=== PATIENT | male | born 1960 | race Caucasian/White ===

== ENCOUNTER → 2022-03-03 09:16 | Outpatient (CLI) | payer OTHER, SELFPAY ==
[2022-03-03 11:24] LABS: COVID19 -Nasal RAPID Negative (Negative)
== END ==
PROVIDERS: PCP Family Medicine; Visit Provider Surgery
DX: Z20.822 Contact with and (suspected) exposure to COVID-19 (principal); Z01.812 Encounter for preprocedural laboratory examination
CPT/HCPCS: 87635; C9803

== ENCOUNTER 2022-03-04 15:20 | Day surgery (SDC) | payer OTHER, SELFPAY ==
[2022-02-24 08:32] VITALS: BMI 25.8
--- NOTE | 2022-03-04 | PATH_ITS ---
[facility] Accession Number: [id number] . 01 Material submitted: . PART A: elbow - LEFT OLECRANON MASS PART B: soft tissue - LEFT AP FOSSA MASS PART C: arm - LEFT ARM MASS . 01 Diagnosis: A. Left Olecranon, Excision: Angiolipoma. . B. Left AP Fossa, Excision: Mature adipose tissue, consistent with lipoma. . C. Left Arm, Excision: Angiolipoma. MRV 03/06/2022 0841 Local . 01 Electronically signed: . Jared Yoon MD, Dermatopathologist NPI- [id number] . 01 Gross description: . A. Received in formalin labeled with the patient's name and left olecranon mass consists of a yellow lobulated fragment of soft tissue measuring 3.9 x 2.5 x 1.3 cm. The external surface is inked blue. Serial sectioning reveals a yellow homogenous unremarkable cut surface. Interventional Radiologist sections are submitted in A1-A2. B. Received in formalin labeled with the patient's name and left AP fossa mass consists of a yellow smooth fragment of soft tissue measuring 1.6 x 1.2 x 0.7 cm. The external surface is inked green and sectioning reveals a yellow homogenous unremarkable cut surface. The specimen is submitted entirely in cassettes B1-B2. C. Received in formalin labeled with the patient's name and left arm mass consists of a smooth yellow soft tissue fragment measuring 2.5 x 1.2 x 0.7 cm. The external surface is inked black. Sectioning reveals a yellow homogenous unremarkable cut surface. The specimen is submitted entirely in cassettes C1-C2. ([id number]) /MRV 03/05/2022 1353 Local . 01 Pathologist provided ICD-10: D17.9 . 01 CPT . 657289, 459118, 727193 Specimen Comment: A courtesy copy of this report has been sent to [phone] Performed at: 01 [facility] [address] [place] [address], [place], [place] [id number] MD Fuad Landaverde MD Phone: [phone]
[2022-03-04 15:34] VITALS: BMI 25.8
[2022-03-04 15:40] VITALS: BP 103/71; PULSE 60; RESP 16; TEMP 36.6; O2SAT 98
--- NOTE | 2022-03-04 16:50 | PM.PREOP ---
Pre-operative Note COVID-19 COVID-19 status: Negative Result date/Date tested (Pos, Neg/Pending): 03/03/22 Interval Note History & Physical reviewed/Exam performed by Physician: Yes Changes to H&P: No ASA Class (for procedural sedation): I
--- NOTE | 2022-03-04 17:24 | SUR.OPER ---
Supine on padded OR bed, head on pillow, arms secured on padded arm boards at <90 degrees abduction, legs uncrossed, safety belt at thigh, tape over blanket over lower legs.
[2022-03-04] MEDS: LIDOCAINE 1% W/EPI 20 ML INJ (17:28)
[2022-03-04] MEDS: BUPIVACAINE 0.5% (PF) VIAL 30 ML INJ (17:29)
--- NOTE | 2022-03-04 17:56 | PM.OP.1 ---
Operative Date/Time/Diagnoses Date of procedure: 03/04/22 Time of procedure: 17:56 Pre-op diagnosis: Left arm subcutaneous soft tissue masses Post-op diagnosis: same Procedure & Clinicians Procedure: Excisional biopsy of left arm subcutaneous soft tissue masses Same procedure as scheduled: Yes Surgeon: Darrius Aranda Anesthesia Type: Local Operative Notes Procedure in detail: The patient was brought to the operating room and placed on the table in the supine position with the left arm on an armboard. Antibiotics were indicated. The left arm was prepped and draped in the usual fashion and a time-out was performed. We started with the largest mass which was just medial to the olecranon process. We injected lidocaine with epinephrine over the mass and created a 5 cm incision. We divided the dermis and a thin layer of subcutaneous adipose tissue in encounter the mass which appeared to be a lipoma. It was well defined and was easily extricated without much dissection. The mass was entirely in the subcutaneous space above the fascia. We then injected some Marcaine into the wound and closed the wound in layers using multiple interrupted 3-0 Vicryl dermal sutures followed by a running 4 Monocryl subcuticular closure. Next, we moved on to the smaller mass in the AC fossa. This was removed through a 3 cm incision and was also in the superficial plane. This mass also was easily extricated without dissection into the surrounding tissues. The mass was about 2.5 cm. The skin incision was closed in a similar manner. Finally, we moved onto the mass over the distal biceps muscle. This was also extricated through a 3 cm incision and was easily removed without dissection and was about 0.5 cm. This incision was closed in the same manner. Steri-Strips were applied over all the incisions followed by Telfa and a Coban wrap. EBL: 5 mL Post-operative Condition: stable Disposition: PACU
[2022-03-04 18:07] VITALS: BP 108/72; PULSE 57; RESP 16; TEMP 36.6; O2SAT 98
== END 2022-03-04 18:12 | disposition home or self-care (01) ==
PROVIDERS: PCP Family Medicine; Referring Provider Surgery; Visit Provider Surgery
PROC: (CPT 24071; principal; 2022-03-04 16:00)
DX: D17.22 Benign lipomatous neoplasm of skin and subcutaneous tissue of left arm (principal); E78.00 Pure hypercholesterolemia, unspecified; Z86.718 Personal history of other venous thrombosis and embolism; Z86.711 Personal history of pulmonary embolism; Z85.820 Personal history of malignant melanoma of skin; Z85.828 Personal history of other malignant neoplasm of skin
CPT/HCPCS: 24071; 24075 ×2

== ENCOUNTER → 2023-07-29 11:03 | Outpatient (CLI) | payer OTHER, SELFPAY | PROVIDERS: PCP Family Medicine; Visit Provider Physician Assistant | DX: R10.31 Right lower quadrant pain (principal) | CPT/HCPCS: 87086 ==

== ENCOUNTER → 2023-07-29 11:38 | Outpatient (CLI) | payer OTHER, SELFPAY ==
--- NOTE | 2023-07-29 11:42 | DI.RAD.S_ITS ---
PROCEDURE: XR KUB INDICATIONS: sharp RLQ pain, hematuria TECHNIQUE: One view of the abdomen acquired. COMPARISON: None. FINDINGS: Surgical changes and devices: None. Bowel: Bowel gas pattern is normal. Soft tissues: 7 mm calcification projecting lateral to the L3 vertebral body. Bones: No suspicious bony lesions. IMPRESSION: 7 mm calcification projecting lateral to the L3 vertebral body, which could indicate a stone within the right ureter. Consider confirmation with CT. Dictated by: Edison Pham M.D. on 07/29/2023 at 12:37 Approved by: Edison Pham M.D. on 07/29/2023 at 12:37
[2023-07-29 12:58] LABS: Add Manual Diff / Slide Review NO; Basophils Absolute Auto 0 /uL (0-100); Basophils Percent Auto 0.4 % (0-2); Eosinophils Absolute Auto 0 /uL (0-450); Eosinophils Percent Auto 0.5 % (2-4); Hematocrit 46.6 % (41-53); Hemoglobin 15.8 g/dL (13.5-17.5); Lymphocytes Absolute Auto 1700 /uL (1100-4500); Mean Corpuscular Hemoglobin 29.8 PG (26-34); Mean Corpuscular Volume 87.8 fL (80-100); Monocytes Absolute Auto 800 /uL (0-900); Monocytes Percent Auto 7.8 % (3-14); Neutrophils Absolute Auto 7400 /uL (1500-7000); Neutrophils Percent Auto 74.3 % (50-75); Platelet Count 225 X10^3/uL (150-400); Red Blood Cell Count 5.31 X10^6/uL (4.5-5.9); Red Cell Distribution Width 14.1 % (11.6-14.8)
[2023-07-29 13:53] LABS: Alanine Aminotransferase 21 IU/L (<50); Albumin 4.2 g/dL (3.5-5.0); Albumin Globulin Ratio 1.2 (1.0-2.8); Alkaline Phosphatase 88 U/L (38-126); Aspartate Aminotransferase 51 IU/L (17-59); BUN Creatinine Ratio 13.1 (6-22); Bilirubin Total 1.2 mg/dL (0.2-1.3); Blood Urea Nitrogen 25 mg/dL (9-20); Calcium 9.5 mg/dL (8.4-10.2); Carbon Dioxide 25 mmol/L (22-32); Chloride 103 mmol/L (98-107); Estimated Glomerular Filt Rate 39 mL/min (>60); Globulin 3.6 g/dL (1.7-4.1); Glucose 92 mg/dL (80-110); HEMOLYSIS 17 (0-50); Lipase 49 U/L (23-300); Potassium 4.3 mmol/L (3.4-5.1); Sodium 136 mmol/L (137-145); Total Protein 7.8 g/dL (6.3-8.2)
== END ==
LOC: RAD 11:41
PROVIDERS: PCP Family Medicine; Referring Provider Physician Assistant; Visit Provider Physician Assistant
DX: R10.31 Right lower quadrant pain (principal)
CPT/HCPCS: 36415; 74018; 80053; 83690; 85025; 87086

== ENCOUNTER → 2023-07-30 07:32 | Outpatient (CLI) | payer OTHER, SELFPAY ==
--- NOTE | 2023-07-30 08:54 | DI.CT.S_ITS ---
PROCEDURE: CT ABDOMEN PELVIS W CON INDICATIONS: RLQ Abdominal pain TECHNIQUE: After the administration of intravenous contrast, axial sections acquired from the lung bases to the pubic symphysis. Coronal and sagittal reformats were performed. For radiation dose reduction, the following was used: automated exposure control, adjustment of mA and/or kV according to patient size. COMPARISON: None. FINDINGS: Image quality: Diagnostic. Lower Chest: No significant findings. ABDOMEN: Liver: No solid mass. Gallbladder: No radiopaque gallstones or wall thickening. Biliary ducts: No biliary dilation. Pancreas: No ductal dilation. Spleen: Size is within normal limits. Round, hyperattenuating lesion measuring 8 millimeters, presumably a flash filling hemangioma. Adrenal Glands: No adrenal nodules. Kidneys and Ureters: 7 millimeter obstructing stone in the proximal right ureter (1072 Hounsfield unit). This results in moderate to severe hydronephrosis. Additional punctate nonobstructing bilateral nephrolithiasis. Stomach and Bowel: Normal colonic caliber, without significant wall thickening. Colonic diverticulosis without evidence of diverticulitis. Peritoneum: No abnormal intraperitoneal fluid. No free air. Ventral Wall: No hernia. Abdominal Nodes: No retroperitoneal or mesenteric adenopathy by size criteria. Vessels: Aorta and inferior vena cava are normal in size. PELVIS: Pelvic Organs: Prostatomegaly. Bladder: Unremarkable. Pelvic Nodes: No enlarged lymph nodes. Miscellaneous: No inguinal hernias are seen. Bones: No aggressive osseous abnormality. IMPRESSION: Obstructing 7 millimeter stone in the proximal right ureter, resulting in moderate to severe hydronephrosis. Additional small burden of bilateral nonobstructing nephrolithiasis. Dictated by: Edison Pham M.D. on 07/30/2023 at 9:50 Approved by: Edison Pham M.D. on 07/30/2023 at 9:56
== END ==
PROVIDERS: PCP Family Medicine; Referring Provider Physician Assistant; Visit Provider Physician Assistant
DX: N13.2 Hydronephrosis with renal and ureteral calculous obstruction (principal); R10.31 Right lower quadrant pain; K57.90 Diverticulosis of intestine, part unspecified, without perforation or abscess without bleeding; N40.0 Benign prostatic hyperplasia without lower urinary tract symptoms
CPT/HCPCS: 74177; Q9967

== ENCOUNTER 2023-07-31 12:41 | Day surgery (SDC) | payer OTHER, SELFPAY ==
--- NOTE | 2023-07-31 | DI.RAD.S_ITS ---
PROCEDURE: XR ABDOMEN 1V INDICATIONS: STENT PLACEMENT TECHNIQUE: 1 intra-operative images acquired by the Urology service. COMPARISON: None. FINDINGS: A single operative image demonstrates that a right ureteral stent has been placed. IMPRESSION: A single operative image demonstrates placement of a right ureteral stent. Dictated by: Pete Hinojosa M.D. on 07/31/2023 at 18:06 Approved by: Pete Hinojosa M.D. on 07/31/2023 at 18:07
[2023-07-31 13:27] VITALS: BP 113/73; PULSE 64; RESP 16; TEMP 36.2; O2SAT 98; BMI 25.8
[2023-07-31] MEDS: LACTATED RINGERS 1,000 ML 21 ML IV (13:27)
--- NOTE | 2023-07-31 13:28 | PM.PREOP ---
Pre-operative Note COVID-19 COVID-19 status: Not tested Interval Note History & Physical reviewed/Exam performed by Physician: Yes Changes to H&P: No
[2023-07-31] MEDS: CEFAZOLIN 2 GM/100 ML PREMIX 100 ML IV (15:05)
--- NOTE | 2023-07-31 15:16 | SUR.OPER ---
Lithotomy on padded OR bed, head on pillow, arms secured on padded arm boards at <90 degrees abduction. Legs secured in padded yellow fins stirrups.
--- NOTE | 2023-07-31 15:25 | P.OP_ITS ---
Procedure & Clinicians Procedure: Cystoscopy with right ureteral stent placement Same procedure as scheduled: Yes Indications: This 63-year-old male presented with complaints of right abdominal pain. The workup was found to have a 7 mm proximal right ureteral calculus. He has colic and hydronephrosis as well as increased creatinine presents this time for cystoscopy with stent placement. Surgeon: Vasile Hopkins Click Yes if Unassisted: Yes Anesthesia Type: General Operative Notes Findings: Findings: Urethral meatus and urethra normal along their length. Sphincter as well coapted prostate shows moderate obstructive character with a somewhat high bladder neck right and left ureteral orifices in normal position with clear efflux from the left. No efflux as observed prior to the stent being placed on the right. Mucosa of the bladder is normal. The stent is placed in good position the stone is noted to be in the proximal right ureter. It did appear to perhaps push back into the renal pelvis with stent placement there was persistent contrast in the colon. No other abnormalities were noted again it was a 7 Romanian by multi length stent with no string. Closure Type: not applicable Specimen(s): none sent Prosthetic devices, grafts, tissues, transplants, or devices: Seven Romanian by multi length stent right ureteral collecting system no string. Estimated Blood Loss (mL): 0 Blood products transfused: none Procedure in detail: Procedure in detail: After informed consent was obtained, the patient was identified brought to the operating room placed in a supine position where anesthesia was induced and maintained. Ensuring an adequate level of anesthesia the patient was transitioned to the lithotomy position where he was prepped, draped, prepared for Transurethral procedure. After ensuring an adequate level of anesthesia, time-out, prepping, draping and antibiotics a 22 Romanian cystoscope was passed through the urethra prostate and into the bladder under direct vision cystoscopy was performed. The right ureteral orifice was identified and a hybrid 0.38 guidewire was passed up and into the collecting system under fluoroscopic visualization. With the wire in good position of the stent was passed in a coaxial fashion along the wire position in the renal pelvis under fluoroscopic visualization of the bladder under direct vision the nylon harness was removed the wire was removed and the stent was left in good position. The bladder was drained the scope was removed and the patient was awakened having tolerated the procedure well to be transferred to the postanesthesia care unit for recovery. From there once recovered he will be discharged to home to follow up my office in the next 10 days and to be scheduled in the next several weeks for definitive treatment of his stone likely with extracorporeal shockwave lithotripsy. There were no complications Complications: none Post-operative Condition: stable Disposition: PACU Plan for aftercare: Discharged to home after recovery follow-up my office in approximately 10 days
[2023-07-31 15:33] VITALS: BP 119/89; PULSE 68; RESP 16; TEMP 36.1; O2SAT 98
[2023-07-31 15:37] VITALS: BP 126/87; PULSE 63; RESP 16; O2SAT 97
[2023-07-31 15:42] VITALS: BP 118/66; PULSE 57; RESP 16; O2SAT 98
[2023-07-31] MEDS: ONDANSETRON 4 MG/2 ML INJ IV (15:46)
[2023-07-31 15:52] VITALS: BP 118/84; PULSE 56; RESP 16; O2SAT 100
[2023-07-31 16:02] VITALS: BP 127/76; PULSE 65; RESP 16; O2SAT 98
== END 2023-07-31 16:32 | disposition home or self-care (01) ==
PROVIDERS: PCP Family Medicine; Referring Provider Urology; Visit Provider Urology
PROC: (CPT 52332; principal; 2023-07-31 14:00)
DX: N13.2 Hydronephrosis with renal and ureteral calculous obstruction (principal); N17.9 Acute kidney failure, unspecified; R10.31 Right lower quadrant pain; Z86.718 Personal history of other venous thrombosis and embolism; Z86.711 Personal history of pulmonary embolism; Z85.820 Personal history of malignant melanoma of skin; Z85.828 Personal history of other malignant neoplasm of skin
CPT/HCPCS: 52332; 74018; 76000; 96372; J0690; J1885; J2250; J2405; J2704; J3010

== ENCOUNTER → 2023-08-17 14:15 | Outpatient (CLI) | payer OTHER, SELFPAY | PROVIDERS: PCP Family Medicine; Visit Provider Urology | DX: N20.0 Calculus of kidney (principal) | CPT/HCPCS: 87086 ==

== ENCOUNTER 2023-08-18 10:20 | Day surgery (SDC) | payer OTHER, SELFPAY ==
[2023-08-17 15:50] VITALS: BMI 25.8
[2023-08-18] VITALS (7 sets, daily range): BP systolic 113–132; BP diastolic 67–82; PULSE 57–60; RESP 10–23; TEMP 36.1–36.6; O2SAT 96–99; BMI 25.8
[2023-08-18] MEDS: LACTATED RINGERS 1,000 ML 21 ML IV (11:11)
--- NOTE | 2023-08-18 11:12 | PM.PREOP ---
Pre-operative Note COVID-19 COVID-19 status: Not tested Interval Note History & Physical reviewed/Exam performed by Physician: Yes Changes to H&P: No
[2023-08-18] MEDS: CEFAZOLIN 2 GM/100 ML PREMIX 100 ML IV (11:36)
--- NOTE | 2023-08-18 11:42 | SUR.OPER ---
Lithotomy on padded OR bed, head on pillow, arms at patients side and padded . Legs secured in stirrups.
--- NOTE | 2023-08-18 12:14 | P.OP_ITS ---
Procedure & Clinicians Procedure: Right extracorporeal shockwave lithotripsy Same procedure as scheduled: Yes Indications: This 63-year-old male presented with complaints of right renal colic severe right hydronephrosis elevation in creatinine all related to an obstructing proximal right ureteral stone. He underwent stent placement to relieve the obstruction and at that time it appeared the stone was pushed back into the kidney. He now presents for right extracorporeal shockwave lithotripsy having had his renal function improved and the ?dust having settled?. Surgeon: Vasile Hopkins Click Yes if Unassisted: Yes Anesthesia Type: General Operative Notes Findings: Findings: The 7 mm stone was noted in the mid kidney. It was treated with 2000 shocks at level 7 with what appeared to be excellent fragmentation. The stent was in good position both in the bladder and in the renal pelvis. No other significant findings were noted. Closure Type: not applicable Specimen(s): none sent Prosthetic devices, grafts, tissues, transplants, or devices: No devices were placed during this procedure. Estimated Blood Loss (mL): 0 Blood products transfused: none Procedure in detail: Procedure in detail: After informed consent was obtained, the patient was identified and brought to the operating room where he was placed in a supine position on the Lithotripter. Once there anesthesia was induced and maintained. Ensuring an adequate level of anesthesia and after time-out and administration of antibiotics the stone was targeted via the imaging system and shock waves initiated. The shockwaves were given at level 7 for a total of 2000 shocks. There was periodic reimaging and re localization to ensure maximal energy del nikunj to the stone. At 2000 shocks the stone appeared to be well fragmented in the maximum number of shock waves reach the shockwave head was rotated out and fluoroscopy performed confirming that the stone was well fragmented. At this point the patient was awakened transferred to the postanesthesia care unit for recovery to follow up my office in 10-14 days with a KUB. Patient is to strain his urine and save any fragments we feel bring to follow-up. There were no complications. Complications: none Post-operative Condition: stable Disposition: PACU Plan for aftercare: Once fully recovered the patient will be discharged to home to follow up my office in 10-14 days with a KUB.
[2023-08-18] MEDS: ACETAMINOPHEN 325 MG TABLET 650 MG PO (12:36)
== END 2023-08-18 12:59 | disposition home or self-care (01) ==
PROVIDERS: PCP Family Medicine; Referring Provider Urology; Visit Provider Urology
PROC: (CPT 50590; principal; 2023-08-18 11:45)
DX: N20.0 Calculus of kidney (principal)
CPT/HCPCS: 50590; J0690; J2704

== ENCOUNTER → 2023-08-28 09:35 | Outpatient (CLI) | payer OTHER, SELFPAY ==
[2023-09-05 15:50] LABS: Ca oxalate dihydrate 30 % (.); Ca oxalate monohydr 70 % (.); Size 2x2 mm (.)
== END ==
PROVIDERS: PCP Family Medicine; Visit Provider Urology
DX: N20.0 Calculus of kidney (principal)
CPT/HCPCS: 82365; 87086

== ENCOUNTER → 2023-08-28 09:58 | Outpatient (CLI) | payer OTHER, SELFPAY ==
--- NOTE | 2023-08-28 10:00 | DI.RAD.S_ITS ---
PROCEDURE: XR KUB INDICATIONS: Follow-up lithotripsy TECHNIQUE: One view of the abdomen acquired. COMPARISON: [facility], , XR KUB, 07/29/2023, 11:51. FINDINGS: Surgical changes and devices: None. Bowel: Bowel gas pattern is normal. Soft tissues: Small group of calcifications projecting over the lower pole of the right kidney. Right-sided nephroureteral stent in place. Bones: No suspicious bony lesions. IMPRESSION: Small group of calcifications projecting over the lower pole of the right kidney. Dictated by: Edison Pham M.D. on 08/28/2023 at 13:03 Approved by: Edison Pham M.D. on 08/28/2023 at 13:05
== END ==
PROVIDERS: PCP Family Medicine; Referring Provider Urology; Visit Provider Urology
DX: N20.0 Calculus of kidney (principal); Z87.442 Personal history of urinary calculi; Z96.0 Presence of urogenital implants
CPT/HCPCS: 74018; 81002; 82365; 87086

== ENCOUNTER → 2023-09-09 09:03 | Outpatient (CLI) | payer OTHER, SELFPAY ==
[2023-09-16 12:12] LABS: Ca oxalate dihydrate 20 % (.); Ca oxalate monohydr 80 % (.)
== END ==
PROVIDERS: PCP Family Medicine; Visit Provider Urology
DX: N20.0 Calculus of kidney (principal); N13.30 Unspecified hydronephrosis; R39.9 Unspecified symptoms and signs involving the genitourinary system
CPT/HCPCS: 52310; 81002; 82365; 87086

== ENCOUNTER → 2023-10-22 09:58 | Outpatient (CLI) | payer OTHER, SELFPAY ==
[2023-10-22 11:05] LABS: Calcium 9.4 mg/dL (8.4-10.2); Uric Acid 5.5 mg/dL (3.5-8.5)
[2023-10-24 10:15] LABS: Calcium 9.4 mg/dL (8.6-10.2); Parathyroid Hormone, Intact 33 pg/mL (15-65)
== END ==
LOC: LAB 09:58
PROVIDERS: PCP Family Medicine; Referring Provider Urology; Visit Provider Urology
DX: N20.0 Calculus of kidney (principal)
CPT/HCPCS: 36415; 82310; 83970; 84100; 84550

== ENCOUNTER → 2023-11-24 09:31 | Outpatient (CLI) | payer OTHER, SELFPAY ==
[2023-11-24 11:19] LABS: Add Manual Diff / Slide Review NO; Basophils Absolute Auto 0 /uL (0-100); Basophils Percent Auto 0.9 % (0-2); Eosinophils Absolute Auto 100 /uL (0-450); Eosinophils Percent Auto 1.3 % (2-4); Hematocrit 46.2 % (41-53); Hemoglobin 15.9 g/dL (13.5-17.5); Lymphocytes Absolute Auto 1900 /uL (1100-4500); Lymphocytes Percent Auto 35.4 % (25-40); Mean Corpuscular HGB Conc 34.3 % (30-36); Mean Corpuscular Hemoglobin 29.9 PG (26-34); Mean Corpuscular Volume 87.2 fL (80-100); Monocytes Absolute Auto 400 /uL (0-900); Monocytes Percent Auto 7.6 % (3-14); Neutrophils Absolute Auto 3000 /uL (1500-7000); Neutrophils Percent Auto 54.8 % (50-75); Platelet Count 227 X10^3/uL (150-400); Red Cell Distribution Width 14.4 % (11.6-14.8); White Blood Cell Count 5.4 X10^3/uL (4.5-11.0)
[2023-11-24 12:43] LABS: Alanine Aminotransferase 16 IU/L (<50); Albumin 4.4 g/dL (3.5-5.0); Albumin Globulin Ratio 1.7 (1.0-2.8); Alkaline Phosphatase 80 U/L (38-126); Aspartate Aminotransferase 21 IU/L (17-59); Bilirubin Total 0.8 mg/dL (0.2-1.3); Blood Urea Nitrogen 20 mg/dL (9-20); Carbon Dioxide 27 mmol/L (22-32); Chloride 107 mmol/L (98-107); Estimated Glomerular Filt Rate > 60 mL/min (>60); Globulin 2.6 g/dL (1.7-4.1); Glucose 92 mg/dL (80-110); HDL Cholesterol 53 mg/dL (40-60); HEMOLYSIS < 15 (0-50); Potassium 4.6 mmol/L (3.4-5.1); Sodium 138 mmol/L (137-145); Triglycerides 134 mg/dL (35-150)
[2023-11-24 13:11] LABS: Prostate Specific Antigen Scrn 1.49 ng/mL (0.1-4.0)
[2023-11-24 15:29] LABS: Cholesterol 201 mg/dL (140-199); LDL Cholesterol Calculated 121 mg/dL (<100)
[2023-11-25 05:03] LABS: Apolipoprotein B 114 mg/dL (<90)
== END ==
PROVIDERS: PCP Family Medicine; Referring Provider Family Medicine; Visit Provider Family Medicine
DX: N20.0 Calculus of kidney (principal); Z96.0 Presence of urogenital implants; N13.30 Unspecified hydronephrosis; Z12.5 Encounter for screening for malignant neoplasm of prostate; E78.00 Pure hypercholesterolemia, unspecified; K63.5 Polyp of colon
CPT/HCPCS: 36415; 80053; 80061; 82172; 85025; 86803; G0103

== ENCOUNTER → 2024-03-03 13:31 | Outpatient (CLI) | payer OTHER, SELFPAY ==
[2024-03-03 15:22] LABS: Vitamin D 25 Hydroxy (D3) 41.7 ng/mL (30.0-100.0)
== END ==
PROVIDERS: PCP Family Medicine; Referring Provider Urology; Visit Provider Urology
DX: R82.994 Hypercalciuria (principal); N20.0 Calculus of kidney; R82.998 Other abnormal findings in urine; R82.992 Hyperoxaluria; Z68.25 Body mass index [BMI] 25.0-25.9, adult
CPT/HCPCS: 36415; 81002; 82306; 99214

== ENCOUNTER → 2024-11-08 12:44 | Outpatient (CLI) | payer OTHER, SELFPAY ==
--- NOTE | 2024-11-08 12:45 | DI.RAD.S_ITS ---
PROCEDURE: XR KUB INDICATIONS: Elevated calcium levels TECHNIQUE: One view of the abdomen acquired. COMPARISON: [facility], , XR KUB, 08/28/2023, 10:13. FINDINGS: Surgical changes and devices: None. Bowel: Bowel gas pattern is normal. Soft tissues: 3 mm calcification overlies the expected location of the inferior right renal pole. Visualized solid organ contours appear normal in size. Bones: No suspicious bony lesions. IMPRESSION: Calcification overlying the expected location of the inferior right renal pole. No evidence of acute abdominopelvic process. Dictated by: Philip Edward M.D. on 11/09/2024 at 1:18 Approved by: Philip Edward M.D. on 11/09/2024 at 1:20
== END ==
PROVIDERS: PCP Family Medicine; Referring Provider Urology; Visit Provider Urology
DX: R82.992 Hyperoxaluria (principal)
CPT/HCPCS: 74018